=== PATIENT | female | born 1965 | race American Indian/Alaskan Native ===

== ENCOUNTER 2018-01-28 12:15 | Outpatient (CLI) | payer OTHER ==
[2018-01-28] MEDS ORDERED: PROVENTIL IH ONE (12:56)
== END 2018-01-28 12:16 | disposition home or self-care (01) ==
LOC: PF 12:15
PROVIDERS: ATTEND Internal Medicine
DX: J84.9 Interstitial pulmonary disease, unspecified (principal); D86.9 Sarcoidosis, unspecified; D47.2 Monoclonal gammopathy; M32.9 Systemic lupus erythematosus, unspecified
CPT/HCPCS: 94060; 94640